=== PATIENT | female | born 1970 | race Caucasian/White ===

== ENCOUNTER 2019-02-17 15:21 | Emergency (ER) | payer OTHER ==
[~2019-02-17] VITALS: Ht 170.2 cm; Wt 60.8 kg
[~2019-02-17 15:21] MED LIST: KEP500 PO; LISI-420 PO
[2019-02-17 15:42] VITALS: BP 135/95
--- NOTE | 2019-02-17 15:47 | NUR ---
VSS, PATIENT AMBULATED TO THE LOBBY, PATIENT STABLE.
[2019-02-17 17:50] VITALS: BP 135/95
--- NOTE | 2019-02-17 17:50 | NUR ---
PATIENT LEFT WITHOUT BEING SEEN BY DR. MILLER. PT CALLED AT 17:50, 18:25 AND 19:05 NO FURTHER CARE PROVIDED FOR PATIENT.
== END 2019-02-17 17:50 | disposition left against medical advice (07) ==
LOC: MED 15:21
DX: F41.9 Anxiety disorder, unspecified (principal); Z53.21 Procedure and treatment not carried out due to patient leaving prior to being seen by health care provider